=== PATIENT | female | born 1975 | race Caucasian/White ===

== ENCOUNTER 2021-06-12 23:45 | Emergency (ER) | payer SELFPAY ==
[~2021-06-12] VITALS: Ht 167.6 cm; Wt 57.6 kg
[2021-06-13 00:09] VITALS: BP 121/71
--- NOTE | 2021-06-13 00:15 | NUR ---
Patient discharged to home in stable condition. Written and verbal after care instructions given. Patient verbalizes understanding of instruction.
== END 2021-06-13 00:19 | disposition home or self-care (01) ==
LOC: ER 23:51
DX: Z20.822 Contact with and (suspected) exposure to COVID-19 (principal); R05.9 Cough, unspecified; R50.9 Fever, unspecified; F17.200 Nicotine dependence, unspecified, uncomplicated